=== PATIENT | male | born 1985 | race Caucasian/White ===

== ENCOUNTER → 2020-09-30 | Outpatient (CLI) | payer OTHER | LOC: LAB 14:22 | PROVIDERS: ATTEND Urology | DX: Z98.52 Vasectomy status (principal) | CPT/HCPCS: 89321 ==

== ENCOUNTER 2020-11-18 13:33 | Observation (INO) | payer OTHER ==
[~2020-11-18] VITALS: Ht 182.9 cm; Wt 112.7 kg
[2020-11-18] MEDS ORDERED: NS IV 500 ML 500 ML IV SCH ×2 (13:45→14:45)
[2020-11-18] MEDS ORDERED: diphenhydrAMINE 50 MG/ML INJ (BENADRYL) IVP ONE ×2 (13:45→14:45)
[2020-11-18] MEDS ORDERED: PROMETHAZINE INJ 25 MG/ML (PHENERGAN) AMP IVP ONE ×2 (13:45→14:45)
--- NOTE | 2020-11-18 13:49 | ED General ---
General Stated Complaint: N/V,CHILLS S/P VASECTOMY 11/18 Source of Information: Patient Exam Limitations: No Limitations History of Present Illness Date Seen by Provider: Nov 18, 2020 Time Seen by Provider: 13:46 Initial Comments This gentleman had a revision of bilateral vasectomy this morning at [facility] by Dr. Cruz. He had a Bro drain placed on each side of the scrotum. was concerned about the amount of bleeding and then followed up with Dr. Mayen will just a little bit ago. Bleeding was normal and was related to his vomiting. He has been having cold chills. Daylin ANDERSON was called in. He has had 2 of those tablets at about 1230 but continues to have nausea and vomiting. He states that his pain is pretty well controlled and the nausea is his big concern. Timing/Duration: 4-6 Hours Severity: Moderate Associated Systoms: Nausea/Vomiting Allergies and Home Medications Allergies Coded Allergies: No Known Drug Allergies (Unverified , 11/18/20) Home Medications Prochlorperazine Maleate 5 Mg Tablet, 5 MG PO TID Prescribed by: ALONDRA DYE on 11/18/20 5407 Patient Home Medication List Home Medication List Reviewed: Yes Review of Systems Review of Systems Constitutional: see HPI, chills (Cold chills), diaphoresis EENTM: see HPI Respiratory: no symptoms reported Cardiovascular: no symptoms reported Genitourinary: no symptoms reported Musculoskeletal: no symptoms reported Skin: no symptoms reported Psychiatric/Neurological: No Symptoms Reported Hematologic/Lymphatic: No Symptoms Reported Physical Exam Vital Signs Vital Signs - First Documented 11/18/20 13:40 Temp 36.8 Pulse 68 Resp 20 B/P (MAP) 143/97 (112) Pulse Ox 99 O2 Delivery Room Air Capillary Refill : Height, Weight, BMI Height: '" Weight: lbs. oz. kg; BMI Method: General Appearance: No Apparent Distress, WD/WN, Other (Hemodynamically stable without tachycardia or hypotension. He is pale.) Respiratory: Lungs Clear, Normal Breath Sounds, No Accessory Muscle Use, No Respiratory Distress Cardiovascular: Regular Rate, Rhythm, Normal Peripheral Pulses Gastrointestinal: Normal Bowel Sounds, Non Tender, Soft Genital/Rectal: Other ([place] drain to each side of the scrotum is in place with minimal bleeding from them. Scrotum is not swollen or edematous.) Extremity: Normal Capillary Refill, Normal Inspection Neurologic/Psychiatric: Alert, Oriented x3 Skin: Normal Color, Warm/Dry Progress/Results/Core Measures Suspected Sepsis SIRS Temperature: Pulse: 68 Respiratory Rate: 20 Laboratory Tests 11/18/20 13:43: White Blood Count 15.5H Blood Pressure 143 /97 Mean: Laboratory Tests 11/18/20 13:43: Creatinine 0.92, Platelet Count 220, Total Bilirubin 1.0 Results/Orders Lab Results Laboratory Tests Test 11/18/20 13:43 11/18/20 15:15 Range/Units White Blood Count 15.5 H 4.3-11.0 10^3/uL Red Blood Count 5.63 H 4.30-5.52 10^6/uL Hemoglobin 18.5 H 13.3-17.7 g/dL Hematocrit 54 40-54 % Mean Corpuscular Volume 95 80-99 fL Mean Corpuscular Hemoglobin 33 25-34 pg Mean Corpuscular Hemoglobin Concent 35 32-36 g/dL Red Cell Distribution Width 11.7 10.0-14.5 % Platelet Count 220 130-400 10^3/uL Mean Platelet Volume 10.6 9.0-12.2 fL Immature Granulocyte % (Auto) 1 % Neutrophils (%) (Auto) 94 H 42-75 % Lymphocytes (%) (Auto) 4 L 12-44 % Monocytes (%) (Auto) 1 0-12 % Eosinophils (%) (Auto) 0 0-10 % Basophils (%) (Auto) 0 0-10 % Neutrophils # (Auto) 14.6 H 1.8-7.8 10^3/uL Lymphocytes # (Auto) 0.6 L 1.0-4.0 10^3/uL Monocytes # (Auto) 0.2 0.0-1.0 10^3/uL Eosinophils # (Auto) 0.0 0.0-0.3 10^3/uL Basophils # (Auto) 0.0 0.0-0.1 10^3/uL Immature Granulocyte # (Auto) 0.1 0.0-0.1 10^3/uL Neutrophils % (Manual) 94 % Lymphocytes % (Manual) 2 % Monocytes % (Manual) 1 % Eosinophils % (Manual) 0 % Basophils % (Manual) 0 % Band Neutrophils 3 % Blood Morphology Comment NORMAL Sodium Level 138 135-145 MMOL/L Potassium Level 4.0 3.6-5.0 MMOL/L Chloride Level 101 98-107 MMOL/L Carbon Dioxide Level 23 21-32 MMOL/L Anion Gap 14 5-14 MMOL/L Blood Urea Nitrogen 8 7-18 MG/DL Creatinine 0.92 0.60-1.30 MG/DL Estimat Glomerular Filtration Rate > 60 BUN/Creatinine Ratio 9 Glucose Level 153 H 70-105 MG/DL Calcium Level 9.5 8.5-10.1 MG/DL Corrected Calcium 8.5-10.1 MG/DL Total Bilirubin 1.0 0.1-1.0 MG/DL Aspartate Amino Transf (AST/SGOT) 48 H 5-34 U/L Alanine Aminotransferase (ALT/SGPT) 90 H 0-55 U/L Alkaline Phosphatase 66 40-136 U/L Total Protein 7.9 6.4-8.2 GM/DL Albumin 4.9 H 3.2-4.5 GM/DL My Orders Orders - ALONDRA DYE APRN Cbc With Automated Diff (11/18/20 13:45) Comprehensive Metabolic Panel (11/18/20 13:45) Ed Iv/Invasive Line Start (11/18/20 13:45) Ns Iv 500 Ml (Sodium Chloride 0.9%) (11/18/20 13:45) Promethazine Injection (Phenergan Injec (11/18/20 13:45) Diphenhydramine Injection (Benadryl Inje (11/18/20 13:45) Ua Culture If Indicated (11/18/20 13:50) Manual Differential (11/18/20 13:43) Diphenhydramine Injection (Benadryl Inje (11/18/20 14:45) Promethazine Injection (Phenergan Injec (11/18/20 14:45) Ns Iv 500 Ml (Sodium Chloride 0.9%) (11/18/20 14:45) Lorazepam Injection (Ativan Injection) (11/18/20 15:15) Lorazepam Injection (Ativan Injection) (11/18/20 15:08) Medications Given in ED Current Medications Medications Dose Ordered Sig/Dianelys Route Start Time Stop Time Status Last Admin Dose Admin Diphenhydramine HCl 25 mg ONCE ONCE IVP 11/18/20 13:45 11/18/20 13:47 DC 11/18/20 13:54 25 MG Diphenhydramine HCl 25 mg ONCE ONCE IVP 11/18/20 14:45 11/18/20 14:46 DC 11/18/20 14:41 25 MG Lorazepam 1 mg ONCE PRN IVP 11/18/20 15:15 11/18/20 15:18 1 MG Promethazine HCl 12.5 mg ONCE ONCE IVP 11/18/20 13:45 11/18/20 13:47 DC 11/18/20 13:55 12.5 MG Promethazine HCl 12.5 mg ONCE ONCE IVP 11/18/20 14:45 11/18/20 14:46 DC 11/18/20 14:39 12.5 MG Vital Signs/I&O 11/18/20 11/18/20 13:40 13:42 Temp 36.8 36.7 Pulse 68 68 Resp 20 20 B/P (MAP) 143/97 (112) Pulse Ox 99 99 O2 Delivery Room Air Capillary Refill : Departure Communication (Admissions) 1515-still nauseated but better. He has received a total of 50 mg of IV Benadryl, 25 mg of IV Phenergan. He received 8 mg of ODT Zofran prior to coming here. He has had 1 L of IV fluids. His preference would be to go home and sleep it off. Will give a milligram of lorazepam. If that fails to adequately control his symptoms he agrees to stay. If it controls his symptoms then he would like to proceed with discharge. 1536-Dr. Mayen will stop by to see the patient, would prefer to have the patient admitted overnight, he will consult. Spoke with Dr. Cunningham agrees to admit. We will do IV fluids. Despite the Ativan that we just gave he still feels little nauseated. Hemodynamically stable, oxygen saturation 95% room air, heart rate 75 normal sinus, blood pressure 138/85. Impression Primary Impression: Postoperative nausea and vomiting Disposition: ADMITTED INPATIENT Condition: Stable Admissions Decision to Admit Reason: Admit from ER (General) Decision to Admit/Date: Nov 18, 2020 Time/Decision to Admit Time: 15:36 Departure-Patient Inst. Decision time for Depature: 15:16 Referrals: NO,LOCAL PHYSICIAN (PCP/Family) Primary Care Physician Patient Instructions: Nausea and Vomiting, Adult ED Add. Discharge Instructions: . Go home and sleep. Small sips of fluids anytime you wake up. Try to stay hydrated. Nausea medication as directed. Return to ER for any worsening or uncontrollable symptoms. Scripts Prochlorperazine Maleate (Compazine) 5 Mg Tablet 5 MG PO TID, #14 TAB Prov: ALONDRA DYE APRN 11/18/20 Copy Copies To 1: STERLING CRUZ MD, PETER J APRN Nov 18, 2020 13:49
[2020-11-18 13:51] LABS: BASOPHILS % (AUTO) 0 % (0-10); EOSINOPHILS % (AUTO) 0 % (0-10); HEMATOCRIT 54 % (40-54); HEMOGLOBIN 18.5 g/dL (13.3-17.7); LYMPHOCYTES # (AUTO) 0.6 10^3/uL (1.0-4.0); LYMPHOCYTES % (AUTO) 4 % (12-44); MEAN CORPUSCULAR HEMOGLOBIN 33 pg (25-34); MEAN CORPUSCULAR HGB CONC 35 g/dL (32-36); MEAN CORPUSCULAR VOLUME 95 fL (80-99); MEAN PLATELET VOLUME 10.6 fL (9.0-12.2); MONOCYTES # (AUTO) 0.2 10^3/uL (0.0-1.0); MONOCYTES % (AUTO) 1 % (0-12); NEUTROPHILS # (AUTO) 14.6 10^3/uL (1.8-7.8); NEUTROPHILS % (AUTO) 94 % (42-75); PLATELET COUNT 220 10^3/uL (130-400); WHITE BLOOD COUNT 15.5 10^3/uL (4.3-11.0)
[2020-11-18 14:08] LABS: ALANINE AMINOTRANSFERASE 90 U/L (0-55); ALBUMIN 4.9 GM/DL (3.2-4.5); ALKALINE PHOSPHATASE 66 U/L (40-136); BAND NEUTROPHILS 3 %; BASOPHILS % (MANUAL) 0 %; BUN/CREATININE RATIO 9; CALCIUM 9.5 MG/DL (8.5-10.1); CARBON DIOXIDE 23 MMOL/L (21-32); CHLORIDE 101 MMOL/L (98-107); CREATININE SERUM 0.92 MG/DL (0.60-1.30); EOSINOPHILS % (MANUAL) 0 %; GFR ESTIMATED > 60; GLUCOSE 153 MG/DL (70-105); LYMPHOCYTES % (MANUAL) 2 %; MONOCYTES % (MANUAL) 1 %; NEUTROPHILS % (MANUAL) 94 %; RBC MORPH NORMAL; SODIUM 138 MMOL/L (135-145); TOTAL PROTEIN 7.9 GM/DL (6.4-8.2)
[2020-11-18] MEDS ORDERED: LORazepam INJ 2 MG/ML (ATIVAN) VIAL ONE (15:08)
[2020-11-18] MEDS ORDERED: LORazepam INJ 2 MG/ML (ATIVAN) VIAL IVP PRN (15:15)
[2020-11-18] MEDS ORDERED: PROC5TAB52 PO (15:17)
[2020-11-18 15:35] LABS: BILIRUBIN,URINE NEGATIVE (NEGATIVE); CLARITY,URINE CLEAR; COLOR,URINE YELLOW; GLUCOSE, URINE (UA) NEGATIVE (NEGATIVE); KETONES,URINE 2+ (NEGATIVE); LEUKOCYTE ESTERASE ,URINE NEGATIVE (NEGATIVE); NITRITE,URINE NEGATIVE (NEGATIVE); PROTEIN,URINE 1+ (NEGATIVE)
[2020-11-18 15:53] LABS: RBC,URINE RARE /HPF
[2020-11-18 15:54] LABS: BACTERIA,URINE FEW /HPF; WBC,URINE 0-2 /HPF
[2020-11-18 16:20] VITALS: BP 150/81
[2020-11-18] MEDS ORDERED: ONDANSETRON 4 MG/2 ML (SDV) Z0FRAN IV PRN (16:30)
[2020-11-18] MEDS ORDERED: CATHETER FLUSH 10 ML SYR IV PRN (16:30)
[2020-11-18] MEDS ORDERED: PROCHLORPERAZINE 10 MG/2ML INJ (COMPAZINE) IV PRN (16:30)
[2020-11-18] MEDS ORDERED: LORazepam INJ 2 MG/ML (ATIVAN) VIAL IV PRN (16:30)
[2020-11-18] MEDS: LACTATED RINGERS 1,000 ML IV SCH ×2 (17:15→23:45)
[2020-11-18 19:05] VITALS: BP 137/76
[2020-11-18] MEDS ORDERED: PATIENT MAY USE OWN MEDS, ALL MC SCH (20:45)
[2020-11-18] MEDS ORDERED: TRAM50TA3 PO (21:21)
[2020-11-18] MEDS ORDERED: CEPH500C PO (21:21)
[2020-11-19] VITALS: BP 138/75
[2020-11-19 04:00] VITALS: BP 164/87
[2020-11-19 05:13] LABS: BASOPHILS % (AUTO) 0 % (0-10); EOSINOPHILS % (AUTO) 0 % (0-10); HEMATOCRIT 48 % (40-54); HEMOGLOBIN 16.7 g/dL (13.3-17.7); LYMPHOCYTES # (AUTO) 1.1 10^3/uL (1.0-4.0); LYMPHOCYTES % (AUTO) 10 % (12-44); MEAN CORPUSCULAR HEMOGLOBIN 33 pg (25-34); MEAN CORPUSCULAR HGB CONC 35 g/dL (32-36); MEAN CORPUSCULAR VOLUME 94 fL (80-99); MEAN PLATELET VOLUME 10.8 fL (9.0-12.2); MONOCYTES # (AUTO) 0.9 10^3/uL (0.0-1.0); MONOCYTES % (AUTO) 8 % (0-12); NEUTROPHILS # (AUTO) 9.4 10^3/uL (1.8-7.8); NEUTROPHILS % (AUTO) 82 % (42-75); PLATELET COUNT 186 10^3/uL (130-400); WHITE BLOOD COUNT 11.5 10^3/uL (4.3-11.0)
[2020-11-19 05:33] LABS: ALANINE AMINOTRANSFERASE 54 U/L (0-55); ALKALINE PHOSPHATASE 56 U/L (40-136); BILIRUBIN,TOTAL 0.9 MG/DL (0.1-1.0); BUN/CREATININE RATIO 9; CALCIUM 8.8 MG/DL (8.5-10.1); CARBON DIOXIDE 21 MMOL/L (21-32); CHLORIDE 106 MMOL/L (98-107); GFR ESTIMATED > 60; GLUCOSE 105 MG/DL (70-105); POTASSIUM 3.2 MMOL/L (3.6-5.0); SODIUM 139 MMOL/L (135-145); TOTAL PROTEIN 6.5 GM/DL (6.4-8.2)
[2020-11-19] MEDS: LACTATED RINGERS 1,000 ML IV SCH (06:23)
[2020-11-19 08:00] VITALS: BP 149/70
[2020-11-19] MEDS ORDERED: CEPHALEXIN 250 MG (KEFLEX) CAP PO SCH (08:00)
[2020-11-19] MEDS ORDERED: KCL 20 MEQ TAB (K-DUR) PO ONE (08:00)
--- NOTE | 2020-11-19 10:35 | Progress Note - Urology ---
Progress Note-Urology Progress Notes/Assess & Plan Progress/Assessment & Plan DOING AND FEELING GREAT. VERY MINIMAL DRAINAGE. DC DRAINS AND DISCHARGE Final Diagnosis NAUSEA AND VOMITING POST REVISION BV STERLING CRUZ MD November 19, 2020 10:35
[2020-11-19 10:40] VITALS: BP 149/70
--- NOTE | 2020-11-19 10:49 | Short Stay Summary-Hospitalist ---
History of Present Illness HPI/Chief Complaint Agustin Foss is a 35-year-old male who underwent a vasectomy revision and presented postoperatively with nausea and vomiting. He denies having any fevers or chills. He has not had any nausea or vomiting since last night. He was able to eat breakfast this morning without any issue. He denies any pain. He has some discomfort in his groin. Source: patient Exam Limitations: no limitations Date Seen 11/19/20 Time Seen by a Provider: 09:05 Attending Physician Jimy Bryant MD PCP No,Local Physician Referring Physician Date of Admission Nov 18, 2020 at 15:34 Home Medications & Allergies Home Medications Reviewed patient Home Medication Reconciliation performed by pharmacy medication reconciliations graphic arts technician and/or nursing. Patients Allergies have been reviewed. Allergies Allergies Coded Allergies No Known Drug Allergies (Unverified11/18/20) Past Fumrmhi-Pxwwjb-Hkdyzb Hx Past Med/Social Hx: Reviewed Nursing Past Med/Soc Hx Patient Social History Alcohol Use: Denies Use Recreational Drug Use: No Smoking Status: Never a Smoker Recent Foreign Travel: No Contact w/other who traveled: No Recent Infectious Disease Expo: No Family History No Pertinent Family Hx Review of Systems Constitutional: no symptoms reported EENTM: no symptoms reported Respiratory: no symptoms reported Cardiovascular: no symptoms reported Gastrointestinal: nausea, vomiting Genitourinary: no symptoms reported Musculoskeletal: no symptoms reported Skin: no symptoms reported Psychiatric/Neurological: No Symptoms Reported Physical Exam Physical Exam Vital Signs Vital Signs - First Documented 11/18/20 13:40 Temp 36.8 Pulse 68 Resp 20 B/P (MAP) 143/97 (112) Pulse Ox 99 O2 Delivery Room Air Capillary Refill : Less Than 3 Seconds Height, Weight, BMI Height: '" Weight: lbs. oz. kg; 33.68 BMI Method: General Appearance: No Apparent Distress, WD/WN HEENT: PERRL/EOMI, Pharynx Normal Neck: Normal Inspection, Supple Respiratory: Lungs Clear, Normal Breath Sounds, No Respiratory Distress Cardiovascular: Regular Rate, Rhythm, No Edema, No Murmur Gastrointestinal: Normal Bowel Sounds, Non Tender, Soft Genital/Rectal: Other ([place] drain to each side of the scrotum is in place with minimal bleeding from them. Scrotum is not swollen or edematous.) Extremity: Normal Inspection, Non Tender, No Pedal Edema Neurologic/Psychiatric: Alert, Oriented x3 Skin: Normal Color, Warm/Dry Lymphatic: No Adenopathy Results Results/Procedures Labs Laboratory Tests 11/18/20 13:43 11/19/20 04:45 Patient resulted labs reviewed. Short Stay Diagnosis Discharge Diagnosis-Short Stay Admission Diagnosis Intractable postoperative nausea and vomiting Final Discharge Diagnosis Intractable postoperative nausea and vomiting Conclusion Plan Intractable postoperative nausea and vomitingresolved Vasectomy revisionurology following, removing drains, continue antibiotics and pain medication Dispositionhome Diagnosis/Problems Diagnosis/Problems (1) Postoperative nausea and vomiting Status: Acute JIMY BRYANT MD November 19, 2020 10:49
== END 2020-11-19 10:40 | disposition home or self-care (01) ==
LOC: EDUNIT# 13:33 → ER 13:36 → 4TH 15:34
PROVIDERS: ADMIT Internal Medicine; ATTEND Internal Medicine
DX: R11.2 Nausea with vomiting, unspecified (principal); Z98.52 Vasectomy status
CPT/HCPCS: 36415; 80053; 81000; 85007; 85025; 85027; G0378